=== PATIENT | female | born 1995 | race Two or more races ===

== ENCOUNTER 2025-04-07 05:31 | Emergency (ER) | payer BC, OTHER ==
[~2025-04-07] VITALS: Ht 160 cm; Wt 121.0 kg
[2025-04-07 05:35] VITALS: BP 119/84; PULSE 88; RESP 18; TEMP 97.8; O2SAT 97
== END 2025-04-07 08:10 | disposition left against medical advice (07) ==
LOC: ER 05:31
DX: R10.13 Epigastric pain (principal); Z79.899 Other long term (current) drug therapy